=== PATIENT | female | born 1995 | race Caucasian/White ===

== ENCOUNTER 2017-03-22 16:30 | Emergency (ER) | payer OTHER ==
[2017-03-22 17:17] LABS: BILIRUBIN,URINE NEGATIVE (NEGATIVE); GLUCOSE, URINE (UA) NEGATIVE (NEGATIVE); KETONES,URINE (UA) NEGATIVE (NEGATIVE); LEUKOCYTE ESTERASE, URINE NEGATIVE (NEGATIVE); NITRITE,URINE NEGATIVE (NEGATIVE); OCCULT BLOOD,URINE NEGATIVE (NEGATIVE); PROTEIN,URINE NEGATIVE (NEGATIVE); UROBILINOGEN,URINE 0.2 (NORMAL) E.U./dL (NORMAL)
[2017-03-22 17:19] LABS: CLARITY,URINE CLEAR (CLEAR)
--- NOTE | 2017-03-22 18:15 | ED Physician Documentation ---
PD HPI FEMALE - Stated complaint Stated Complaint: FEMALE - Chief complaint Chief Complaint: General - History obtained from History obtained from: Patient - History of Present Illness Timing - onset: How many days ago (several) Timing - details: Waxing and waning Associated symptoms: Pelvic pain, Vaginal discharge Contributing factors: control Similar symptoms before: No diagnosis (Reports history of similar symptoms once in the past.) - Additional information Additional information: The patient is a 22-year-old female who presents with several day history of intermittent pelvic cramping pain, which she states feels like menstrual cramping. She is also concerned about vaginal discharge with a foul odor. She denies dysuria or vaginal bleeding. She denies nausea, vomiting, or fever. She is on control pills, and does not remember the date of her last menstrual period. She reports remote history of similar symptoms once in the past, resolving spontaneously. Review of Systems Constitutional: denies: Fever Nose: denies: Congestion Throat: denies: Sore throat Respiratory: denies: Dyspnea, Cough GI: reports: Abdominal Pain (Mild pelvic cramping.). denies: Nausea, Vomiting : reports: LMP (?), Control. 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 Psych: Depression - Past Surgical History HEENT: Tonsil/Adenoidectomy - Present Medications Home Medications: Ambulatory Orders Medication Instructions Recorded Confirmed Venlafaxine [Effexor] 2 tab PO DAILY 03/22/17 03/22/17 - Allergies Allergies/Adverse Reactions: Allergies Allergy/AdvReac Type Severity Reaction Status Date / Time No Known Drug Allergies Allergy Verified 03/22/17 16:43 - Social History Does the pt smoke?: Yes Smoking Status: Current every day smoker Does the pt drink ETOH?: Yes Does the pt have substance abuse?: No - Immunizations Immunizations are current?: Yes - POLST Patient has POLST: No PD ED PE NORMAL - Vitals Vital signs reviewed: Yes (Borderline hypertension.) - General General: Alert and oriented X 3, Well developed/nourished - HEENT HEENT: Atraumatic, EOMI, Pharynx benign - Neck Neck: No adenopathy - Cardiac Cardiac: RRR, No murmur - Respiratory Respiratory: No respiratory distress, Clear bilaterally - Abdomen Abdomen: Normal bowel sounds, Soft, Non tender - Female Female : Coat Operator Insulator present - Back Back: No CVA TTP - Derm Derm: No rash - Extremities Extremities: No edema, No calf tenderness / cord - Neuro Neuro: Alert and oriented X 3, No motor deficit, Normal speech PD ED PE EXPANDED - Female Female : Normal external, Normal exam, Vaginal Discharge (scant), Cultures sent, Coat Operator Insulator present. No: Vaginal Bleeding, CMT, Adnexal Mass, Adnexal Tenderness Results - Vitals Vitals: Oxygen O2 Source Room air - Labs Labs: Microbiology 03/22/17 17:39 Wet Prep - Final Cervix Laboratory Tests 03/22/17 03/22/17 03/22/17 17:12 17:25 17:39 HCG, Quant < 0.60 Urine Color YELLOW Urine Clarity CLEAR Urine pH 6.0 Ur Specific [place] >=1.030 H Urine Protein NEGATIVE Urine Glucose (UA) NEGATIVE Urine Ketones NEGATIVE Urine Occult Blood NEGATIVE Urine Nitrite NEGATIVE Urine Bilirubin NEGATIVE Urine Urobilinogen 0.2 (NORMAL) Ur Leukocyte Esterase NEGATIVE Ur Microscopic Review NOT INDICATED Urine Culture Comments NOT INDICATED C.trachomatis RNA (TMA) NOT DETECTED Chlamydia/GC Comment SEE NOTE N.gonorrhoeae RNA (TMA) NOT DETECTED PD MEDICAL DECISION MAKING - ED course Complexity details: reviewed results, re-evaluated patient, considered differential, d/w patient ED course: The patient's presentation is most consistent with menstrual. Early PID is a consideration, but is clinically not evident. Her presentation does not suggest related illness, with negative test. Urinalysis is negative. Wet mount is negative for yeast, Trichomonas, and clue cells. GC and chlamydia cultures are pending. 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 Departure - Departure Disposition: 01 Home, Self Care Clinical Impression: Pelvic cramping Condition: Stable Instructions: ED Pelvic Pain [facility] Follow-Up: SARAH KAPOOR [Primary Care Provider] - Comments: You can use ibuprofen, Aleve, or acetaminophen as needed for cramping pain. Follow up with your primary physician within 2 weeks. Call to schedule an appointment. Return to the emergency department if you develop increasing pain, or otherwise worsening symptoms. Discharge Date/Time: 03/22/17 18:30
[2017-03-22 18:42] VITALS: BP 134/80
== END 2017-03-22 18:30 | disposition home or self-care (01) ==
LOC: ED 16:30
DX: R10.30 Lower abdominal pain, unspecified (principal); F17.200 Nicotine dependence, unspecified, uncomplicated
CPT/HCPCS: 36415; 81001; 81003; 84702; 87086; 87210; 87491; 87591; 99283

== ENCOUNTER 2017-05-09 09:40 | Emergency (ER) | payer OTHER ==
[2017-05-09 09:55] VITALS: BP 129/74
[2017-05-09] MEDS ORDERED: IBUPROFEN 800 MG TABLET PO STA (10:37)
--- NOTE | 2017-05-09 10:39 | ED Physician Documentation ---
History of Present Illness - Stated complaint Stated Complaint: WRIST DISCOMFORT - Chief complaint Chief Complaint: Ext Problem - History obtained from History obtained from: Patient - History of Present Illness Timing: How many weeks ago (several) Pain level max: 5 Pain level now: 4 Improved by: rest Worsened by: movement - Additonal information Additional information: Patient states that she works at a [employer] and has been having increasing right wrist pain after work for the past several weeks. Seems to be better with rest. Has not taken anything for the pain. She is right-handed. 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 Psych: Depression - Past Surgical History Past Surgical History: Yes HEENT: Tonsil/Adenoidectomy - Present Medications Home Medications: Ambulatory Orders Medication Instructions Recorded Confirmed Venlafaxine [Effexor] 2 tab PO DAILY 03/22/17 03/22/17 Control 05/09/17 Meloxicam [Mobic] 7.5 mg PO BID PRN #20 tablet 05/09/17 - Allergies Allergies/Adverse Reactions: Allergies Allergy/AdvReac Type Severity Reaction Status Date / Time No Known Drug Allergies Allergy Verified 05/09/17 09:57 - Social History Does the pt smoke?: No Smoking Status: Former smoker Does the pt drink ETOH?: Yes Does the pt have substance abuse?: No - Immunizations Immunizations are current?: Yes - POLST Patient has POLST: No PD ED PE NORMAL - Vitals Vital signs reviewed: Yes - General General: Alert and oriented X 3, No acute distress - Derm Derm: Warm and dry - Extremities Extremities: Other (R wrist - no bony tenderness. NVI. FROM without pain. no skin changes. ) - Neuro Neuro: Alert and oriented X 3 Results - Vitals Vitals: Vital Signs - 24 hr 05/09/17 09:48 Temperature 36.8 C Heart Rate 83 Respiratory 18 Rate Blood Pressure 129/74 O2 Saturation 98 Oxygen O2 Source Room air PD MEDICAL DECISION MAKING - ED course Complexity details: considered differential, d/w patient ED course: Patient is a 22-year-old female who presents to the emergency department with what appears to be a tendinitis of the right wrist. Will place in a Velcro splint to utilize at night and use NSAIDs at home as well. No evidence of bony injury. Patient counseled regarding signs and symptoms for which I believe and urgent re-evaluation would be necessary. Patient with good understanding of and agreement to plan and is comfortable going home at this time This document was made in part using voice recognition software. While efforts are made to proofread this document, sound alike and grammatical errors may occur. Neurovascularly intact. No neurological deficits Departure - Departure Disposition: 01 Home, Self Care Clinical Impression: Tendonitis Condition: Good Instructions: Tendonitis and Tenosynovitis Follow-Up: SARAH KAPOOR [Primary Care Provider] - Within 1 week Prescriptions: Meloxicam [Mobic] 7.5 mg PO BID PRN #20 tablet PRN Reason: Pain Comments: Wear the splint at night. Follow up with your doctor in 1-2 weeks for repeat evaluation. Forms: Activity restrictions Discharge Date/Time: 05/09/17 10:48
== END 2017-05-09 10:48 | disposition home or self-care (01) ==
LOC: ED 09:40
DX: M77.9 Enthesopathy, unspecified (principal); Z87.891 Personal history of nicotine dependence
CPT/HCPCS: 99283; A9270